=== PATIENT | male | born 1945 | race Caucasian/White ===

== ENCOUNTER 2019-02-18 12:50 | Day surgery (SDC) | payer MEDICARE, OTHER ==
[~2019-02-18 12:50] MED LIST: KETOROLAC TROMETHAMINE 0.45% 4 DROP/0.4 ML DROPERETTE OS PRN
[2019-02-18] MEDS: DORZOLAMIDE HCL 2%/TIMOLOL MALEAT 0.5% OPH SOLN 10 ML OS PRN ×2 (13:28)
[2019-02-18] MEDS: BESIFLOXACIN HCL 0.6% OPH SUSP 5 ML BOTTLE OS PRN ×4 (13:28→14:05)
[2019-02-18] MEDS: CYCLOPENTOLATE 0.2%/PHENYLEPHRINE 1% OPH SOLN 2 ML OS PRN ×3 (13:55→14:15)
[2019-02-18] MEDS: TETRACAINE HCL 0.5% OPH SOLN 4 ML OS PRN ×3 (13:55→14:29)
[2019-02-18] MEDS: TROPICAMIDE 1% OPH SOLN 15 ML OS PRN ×3 (13:55→14:15)
[2019-02-18] MEDS ORDERED: MIDAZOLAM 2 MG/2 ML INJ ONE ×2 (14:08→15:16)
[2019-02-18] MEDS: LIDOCAINE 1% INJ-PF (10 MG/ML) 30 ML SDV ONE ×2 (15:16)
[2019-02-18] MEDS: CHONDR SU A NA/HYALUR INTRAOC KIT (SURGICARE) ONE ×2 (15:16)
[2019-02-18] MEDS: EPINEPHRINE INJ/PF 1 MG/1 ML AMPULE ONE ×2 (15:16)
--- NOTE | 2019-03-14 12:29 | Operative Report ---
Operative Report-[facility] Operative Report: Preoperative diagnosis: nuclear and cortical cataract, left eye Post operative diagnosis: nuclear and cortical cataract, left eye Procedure: phacoemulsification and posterior chamber intraocular lens implant, left eye Procedure date: February 18, 2019 Surgeon: Joaquin Clifton MD Nurse Sane: Anesthesia: topical with IV sedation Complications: none Tissue to pathology: none Estimated blood loss: none Indications for surgery: Mr. Erazo is a 73-year-old male who presented to our clinic complaining of difficulty seeing to read and drive due to blurry vision in his left eye. On examination he was found to have the best corrected visual acuity of 20/30-2 in the left eye. Ophthalmoscopy revealed a 2+ nuclear 3+ cortical degeneration cataract in the left eye with a normal appearing cornea, vitreous, retina and optic nerve.I discussed the findings of the exam with a patient. We discussed the risks benefits and alternatives of cataract extraction and intraocular lens implant in the left eye as a means of improving his vision. Risks that were presented to the patient included infection, bleeding, retinal detachment and possible need for additional surgery. The patient understood that he may need to wear glasses after surgery. After our discussion, the patient indicated his interest in having this procedure performed by signing and informed, witnessed consent form. Report of procedure: On the day of surgery the patient was given a topical application to the left eye that consisted of drops of tetracaine 0.5%, tropicamide 1%, Cyclomidril, Besivance 0.6% and Acular 0.45%. The patient was taken to the operating room in a supine position in a standard eye bed. Intravenous sedation was administered and he was prepped and draped in the standard ophthalmic fashion. A time out was performed to confirm the surgical site. Attention was directed to the left eye where a paracentesis was created at the 530 position at the corneal limbus with a 15 blade. The anterior chamber was filled with 0.3 mL of 1% methylparaben free lidocaine And after 30 seconds the anterior chamber was filled with viscoelastic materialplain corn i. A three-plane corneal incision was then made at the 3 oclock position at the limbus with a keratome. A continuous curvilinear capsulorhexis was made in the anterior capsule of the lens with a cystotome. The lens was hydrodissected used balanced saline solution. The lens nucleus was removed by phacoemulsification using the divide and conquer technique. CDE 15.87. The remaining cortical material was removed from the posterior capsular bag using irrigation and aspiration. The posterior capsular bag was filled with viscoelastic material in a lens implant was inserted into the posterior capsular bag. The lens chosen for this case was a one piece acrylic lens from [employer] model [id number] serial number [id number], the lens power was 19.5 D. The lens was removed from its package inspected and found to be free of defects. It was loaded into a [employer] D cafe helper. Inserted was passed through the temporal limbal wound and the lens was advanced into the posterior capsular bag.It was centered in the bag with a Dilip spatula.The viscoelastic material was removed from the eye using irrigation and aspiration. The winds were closed by stromal hydration and they were tested with Weck-negar sponges and found to have no leaks. Intraocular pressure was assessed by manual palpation and found to be within physiologic range. The drapes and speculum were removed. Drops of Durezol, Combigan and gatifloxacin were instilled in the left eye.Periocular skin was cleaned with gauze and the eye was covered with a shield.The patient was then taken to the recovery room in good condition. He tolerated the procedure very well. He was given a prescription for gatifloxacin, Durezol and Ilevro to use every two hours while awake today. He will return to my clinic for follow-up evaluation tomorrow.
== END 2019-02-18 16:14 | disposition home or self-care (01) ==
LOC: SC 12:50
PROVIDERS: ATTEND Ophthalmology
DX: H25.812 Combined forms of age-related cataract, left eye (principal); I10 Essential (primary) hypertension; E11.9 Type 2 diabetes mellitus without complications; E78.00 Pure hypercholesterolemia, unspecified; Z79.899 Other long term (current) drug therapy; Z79.82 Long term (current) use of aspirin; Z85.820 Personal history of malignant melanoma of skin
CPT/HCPCS: 66984; 00142; V2632; J2250; J3490 ×3; A9270; J0171; 142